=== PATIENT | male | born 1945 | race Two or more races ===

== ENCOUNTER 2019-02-02 09:02 | Emergency (ER) | payer BC, OTHER ==
[2019-02-02 09:10] VITALS: BP 158/70; PULSE 91; TEMP 97.8; BMI 29.3
--- NOTE | 2019-02-02 09:20 | PDOC ---
History of Present Illness - General Chief Complaint: Pain, Acute Stated Complaint: KNEE/BACK/RT FOOT PAIN Time Seen by Provider: 02/02/19 09:15 - History of Present Illness Initial Comments: 02/02/19 09:20 CHIEF COMPLAINT: Knee, ankle pain HISTORY OF PRESENT ILLNESS: 73 yo M with hx of DM, HTN, hydroencephaly (s/p shunt), presents to fast track with pain to R achilles and R knee x 5 days. Patient reports the pain is similar to the pain he felt when he was diagnosed with arthritis and given a steroid shot in his knee by his orthopedist. 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 PAST MEDICAL HISTORY: Denies past medical history FAMILY HISTORY: Denies SOCIAL HISTORY: Denies tobacco, alcohol, illicit drug use. SURGICAL HISTORY: Denies ALLERGIES: No known drug allergies REVIEW OF SYSTEMS General/Constitutional: Denies fever or chills. Denies weakness, weight change. HEENT: Denies change in vision. Denies ear pain or discharge. Denies sore throat. Cardiovascular: Denies chest pain or shortness of breath. Respiratory: Denies cough, wheezing, or hemoptysis. Gastrointestinal: Denies nausea, vomiting, diarrhea or constipation. Denies rectal bleeding. Genitourinary: Denies dysuria, frequency, or change in urination. Musculoskeletal: R achilles and R knee pain. Skin and breasts: Denies rash or easy bruising. Neurologic: Denies headache, vertigo, loss of consciousness, or loss of sensation. Psychiatric: Denies depression or anxiety. PHYSICAL EXAM General Appearance: Well-appearing, appropriately dressed. No apparent distress , no intoxication. HEENT: EOMI, PERRLA, normal ENT inspection, normal voice, TMs normal, pharynx normal. No conjunctival pallor. No photophobia, scleral icterus. Neck: Supple. Trachea midline. No tenderness, rigidity, carotid bruit, stridor , lymphadenopathy, or thyromegaly. Respiratory/Chest: Lungs CTAB. No shortness of breath, chest tenderness, respiratory distress, accessory muscle use. No crackles, rales, rhonchi, stridor , wheezing, dullness Cardiovascular: RRR. S1, S2. No JVD, murmur, bradycardia, tachycardia. Vascular Pulses: Dorsalis-Pedis (R): 2+, Dorsalis-Pedis (L): 2+ Gastrointestinal/Abdominal: Normal bowel sounds. Abdomen soft, non-distended. No tenderness or rebound tenderness. No organomegaly, pulsatile mass, guarding , hernia, hepatomegaly, splenomegaly. Lymphatic: No adenopathy, tenderness. Musculoskeletal/Extremities: Mild tenderness to R posterior ankle and anterior R knee. Negative Cantu test. Normal inspection. FROM of all extremities, normal capillary refill. Pelvis Stable. No CVA tenderness. No tenderness to extremities, pedal edema, swelling, erythema or deformity. Integumentary: Appropriate color, dry, warm. No cyanosis, erythema, jaundice or rash Neurologic: game designer II-XII intact. Fully oriented, alert. Appropriate mood/affect. Motor strength 5/5. No appreciable EOM palsy, facial droop or sensory deficit. 02/02/19 09:22 Past History - Past Medical History Allergies/Adverse Reactions: Allergies Allergy/AdvReac Type Severity Reaction Status Date / Time No Known Allergies Allergy Verified 02/02/19 09:10 Home Medications: Ambulatory Orders Prednisone 10 mg PO DAILY 5 Days #5 tablet 02/02/19 COPD: Yes Diabetes: Yes - Psycho Social/Smoking Cessation Hx Smoking History: Former smoker Have you smoked in the past 12 months: No If you are a former smoker, when did you quit?: 7 years Information on smoking cessation initiated: No *Physical Exam - Vital Signs Last Vital Signs Temp Pulse Resp BP Pulse Ox 97.8 F 91 H 16 158/70 97 02/02/19 09:05 02/02/19 09:05 02/02/19 09:05 02/02/19 09:05 02/02/19 09:05 Medical Decision Making - Medical Decision Making 02/02/19 09:24 73 yo M with hx of DM, HTN, hydroencephaly (s/p shunt), presents to fast track with pain to R achilles and R knee x 5 days. -Toradol IM (patient denies any hx of kidney dysfunction) X-ray results suggestive of arthritis Advised patient to take medication as prescribed and follow up with ortho as discussed. Advised patient of signs and symptoms for return to ED. Patient verbalized understanding and agrees to plan. Discharge - Discharge Information Problems reviewed: Yes Clinical Impression/Diagnosis: Arthritis Condition: Stable Disposition: HOME - Admission No - Additional Discharge Information Prescriptions: Prednisone 10 mg PO DAILY 5 Days #5 tablet - Follow up/Referral Referrals: Francisco Wade MD [Primary Care Provider] - Aj Gandara [Non Staff, Medical] - - Patient Discharge Instructions Patient Printed Discharge Instructions: DI for Arthritis - Post Discharge Activity Work/Back to School Note: Back to Work
[2019-02-02] MEDS ORDERED: KETOROLAC TROMETHAMINE 30 MG/1 ML VIAL IM ONE (09:22)
[2019-02-02] MEDS ORDERED: KETOROLAC TROMETHAMINE 15 MG/ML VIAL ONE (09:37)
== END 2019-02-02 11:34 | disposition home or self-care (01) ==
LOC: JERFT 09:02
DX: M19.90 Unspecified osteoarthritis, unspecified site (principal); I10 Essential (primary) hypertension; E11.9 Type 2 diabetes mellitus without complications; Z98.2 Presence of cerebrospinal fluid drainage device; G93.49 Other encephalopathy; Z87.891 Personal history of nicotine dependence
CPT/HCPCS: 73562-TC-RT-FY; 73610-TC-RT-FY; 99281-25

== ENCOUNTER 2021-10-11 10:19 | Emergency (ER) | payer OTHER, BC ==
[2021-10-11 10:34] VITALS: TEMP 97.6; BMI 26.2
[2021-10-11 16:04] VITALS: BP 162/87; PULSE 74
== END 2021-10-11 15:50 | disposition home or self-care (01) ==
LOC: JER 10:19
DX: T85.09XA Other mechanical complication of ventricular intracranial (communicating) shunt, initial encounter (principal)
CPT/HCPCS: 70450-TC; 82962; 93005; 93010; 99285-25